=== PATIENT | male | born 2000 | race Caucasian/White ===

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

== ENCOUNTER 2019-03-10 11:01 | Emergency (ER) | payer MEDICAID ==
[~2019-03-10] VITALS: Ht 180.3 cm; Wt 57.0 kg
[~2019-03-10 11:01] MED LIST changes: -CLIN-79 PO; -CLIN-80 PO; +CLIN150C8 PO; -NAPR-56 PO
[2019-03-10 11:03] VITALS: BP 115/56
[2019-03-10] MEDS ORDERED: HYDROcodone/acetaminophen 5mg/325mg tablet PO ONE (11:20)
[2019-03-10] MEDS ORDERED: CEPH250T PO (11:21)
[2019-03-10] MEDS ORDERED: NAPR-56 PO (11:21)
== END 2019-03-10 11:32 | disposition home or self-care (01) ==
LOC: ER 11:01
DX: K04.7 Periapical abscess without sinus (principal); K03.81 Cracked tooth; Z88.0 Allergy status to penicillin; Z79.899 Other long term (current) drug therapy
CPT/HCPCS: 99283